=== PATIENT | male | born 1990 | race Caucasian/White ===

== ENCOUNTER 2019-05-09 09:45 | Emergency (ER) | payer SELFPAY ==
--- NOTE | ~2019-05-09 | XR_ITS ---
EXAMINATION: XR chest 2V EXAM DATE: 05/09/2019 10:15 INDICATION: Cardiac ablation age 17. Left-sided chest pain onset this morning. TECHNIQUE: Frontal and lateral projections of the chest obtained and reviewed. There is no prior august dy for comparison. FINDINGS: The lungs are clear. There are no pleural effusions. The cardiomediastinal silhouette is within normal limits. There is no pneumothorax suspected. The bones and soft tissues are unremarkab le. IMPRESSION: No acute cardiopulmonary findings. Reviewed, dictated and finalized at location A. D CONTACT PERSON
--- NOTE | 2019-05-09 09:50 | ECG_ITS ---
Measurements Intervals [place] Rate: 66 P: 49 CT: 155 QRS: 32 QRSD: 110 T: 45 QT: 364 QTc: 382 Interpretive Statements SINUS RHYTHM NORMAL ECG Electronically Signed On 05-10-2019 17:25:54 MENTAL HEALTH PROGRAM SPECIALIST by Daniel Call D.O.
[2019-05-09 09:55] VITALS: BP 122/86; PULSE 78; RESP 16; TEMP 36.5; O2SAT 98
[2019-05-09 09:57] VITALS: O2SAT 99
[2019-05-09 09:58] VITALS: PULSE 80
--- NOTE | 2019-05-09 10:02 | ED.CHESTPAIN ---
HPI - Chest Pain General Chief Complaint: Chest Pain Stated Complaint: CHEST PAIN Source: patient Mode of arrival: ambulatory Limitations: no limitations History of Present Illness HPI narrative: Patient is a 28-year-old male who presents to emergency department for evaluation of left-sided chest pain over the left breast worse with palpation activity and movement denies any injury or trauma patient denies similar occurrence in the past patient notes that the pain has been constant for the last 5 days worse with activity is noted took ibuprofen with no improvement denies any other illness or complaints notes that he has had some dyspnea this morning which resolved Related Data Allergies Allergy/AdvReac Type Severity Reaction Status Date / Time No Known Allergies Allergy Unknown Unverified 09/02/18 18:17 Review of Systems Review of Systems: All systems reviewed & are unremarkable except as noted in HPI and below PMFSH Surgical History Surgical History (Updated 05/09/19 @ 10:08 by Stephon Zacarias PA-C) H/O cardiac radiofrequency ablation Social History Social History (Updated 05/09/19 @ 10:08 by Stephon Zacarias PA-C) Smoking status: Never smoker Gender identity (if verbalized by the patient): Male Exam Narrative: Exam Narrative: GENERAL: Well-appearing, well-nourished, and in no acute distress. HEAD: Normocephalic, atraumatic. EYES: PERRLA and EOMI. ENT: Nares clear, no rhinorrhea or epistaxis. Mucous membranes moist. Oropharynx without tonsillar hypertrophy exudate or other lesions. NECK: Supple. No adenopathy or masses. CHEST: Clear to auscultation. No respiratory distress. No wheezes rales or rhonchi. Tenderness over the left breast reproducible pain noted HEART: Regular rate and rhythm. No murmur heard. Normal peripheral pulses. ABDOMEN: Soft, nontender, nondistended EXTREMITIES: Normal range of motion. No edema. SKIN: Warm, dry, no rash. NEURO: No focal deficits. Alert and oriented x3. Cranial nerves II through XII grossly intact PSYCH: Normal mood and affect. Course Course Emergency Course: Patient in the room in no distress aware of case findings treatment plan and diagnosis agreeing to follow-up as directed or to return if symptoms worsen or concerns Vital Signs Vital signs: Vital Signs Temperature 97.7 F 05/09/19 09:55 Pulse Rate 78 05/09/19 09:55 Respiratory Rate 16 05/09/19 09:55 Blood Pressure 122/86 05/09/19 09:55 Pulse Oximetry 98 05/09/19 09:55 Temperature 97.7 F 05/09/19 09:55 Pulse Rate 80 05/09/19 09:58 Respiratory Rate 16 05/09/19 09:55 Blood Pressure 122/86 05/09/19 09:55 Pulse Oximetry 99 05/09/19 09:57 MDM - Chest Pain MDM Narrative Medical decision making narrative: Paitents EKGs and labs are without significant high risk changes. Cardiac risk facotrs were reviewd. Patient is felt likely to be low risk for ACS and resonable for further risk stratification testing as an outpatient. Pain was not suddne or maximal in onset without tearing or ripping. quality. No other signs or symptoms to suggest aortic dissection. A low-risk Wells criteria is noted. PE is felt to be unlikely. No pneumonia or URI symptoms were seen on evaluation today. Patient is felt to b resonable for continued evaluation as an outpatient. Lab Data Result diagrams: 05/09/19 10:28 05/09/19 10:28 Labs: Lab Results 05/09/19 05/09/19 05/09/19 Range/Units 10:28 10:28 10:28 WBC 5.9 (4.5-10.0) K/mm3 RBC 4.84 (4.6-6.20) M/mm3 Hgb 15.5 (14.0-18.0) g/dL Hct 43.5 (42.0-52.0) % MCV 89.9 (80-100) fl MCH 32.0 (26-34) pg MCHC 35.6 (32-36) g/dl RDW 11.9 (11.5-14.5) % Plt Count 290 (150-375) k/mm3 MPV 9.8 (7.4-10.4) fl Immature Gran % (Auto) 0.5 (0-0.5) % Neut % (Auto) 59.0 (45.5-73.1) % Lymph % (Auto) 28.8 (18.3-44.2) % Williamson % (Auto) 8.6 H (2.6-8.5) % Eos % (Auto) 2.4 (0-4
[2019-05-09 10:42] LABS: Basophils Percent Auto 0.7 % (0.2-1.2); Eosinophils Absolute Auto 0.1 K/mm3 (0-0.3); Eosinophils Percent Auto 2.4 % (0-4.4); Hematocrit 43.5 % (42.0-52.0); Hemoglobin 15.5 g/dL (14.0-18.0); Immature Granulocyte Absolute 0.03 K/mm3 (0.00-0.031); Immature Granulocyte Percent A 0.5 % (0-0.5); Lymphocytes Absolute Auto 1.71 K/mm3 (0.9-3.2); Lymphocytes Percent Auto 28.8 % (18.3-44.2); Mean Corpuscular HGB Conc 35.6 g/dl (32-36); Mean Corpuscular Volume 89.9 fl (80-100); Mean Platelet Volume 9.8 fl (7.4-10.4); Monocytes Absolute Auto 0.5 K/mm3 (0.1-0.6); Monocytes Percent Auto 8.6 % (2.6-8.5); Neutrophils Absolute Auto 3.5 K/mm3 (1.3-6.7); Platelet Count Result 290 k/mm3 (150-375); Red Blood Count 4.84 M/mm3 (4.6-6.20); Red Cell Distribution Width 11.9 % (11.5-14.5); White Blood Count 5.9 K/mm3 (4.5-10.0)
[2019-05-09 10:55] LABS: Blood Urea Nitrogen 12 mg/dL (9-20); Calcium 9.9 mg/dL (8.4-10.2); Carbon Dioxide 28 mmol/L (22-30); Chloride 97 mmol/L (98-107); Estimated Glomerular Filt Rate > 60; Glucose 101 mg/dL (75-110); Partial Thromboplastin Time 25.6 SECONDS (22.3-36.8); Potassium 4.2 mmol/L (3.4-5.0); Sodium 139 mmol/L (137-145)
[2019-05-09 10:59] LABS: D Dimer 0.27 ug/mL (<0.48)
[2019-05-09 11:06] LABS: Troponin I < 0.012 ng/mL (0.000-0.034)
[2019-05-09 12:08] VITALS: BP 122/86; PULSE 77; RESP 14; O2SAT 100
== END 2019-05-09 12:09 | disposition home or self-care (01) ==
PROVIDERS: Emergency Medicine Emergency Medical Services; Emergency Provider Emergency Medicine
DX: R07.9 Chest pain, unspecified (principal)
CPT/HCPCS: 36415; 71046; 80048; 84484; 85025; 85380; 85610; 85730; 93005; 99284

== ENCOUNTER 2019-05-18 04:27 | Emergency (ER) | payer SELFPAY ==
--- NOTE | ~2019-05-18 | CT_ITS ---
EXAMINATION: CTA chest PE protocol DATE: 05/18/2019 06:09 INDICATION: Chest pain. TECHNIQUE: Computed tomography angiography (CTA) of the chest was performed with 100 mL Omnipaque-350 intravenous contrast timed to evaluate the pulmonary arteries. Coronal maximum intensity projection 3D-reconstructions were created by the technologist. Automated exposure control and iterative reconst ruction technique were employed. The dose-length product was 619.12 mGy-cm. COMPARISON: None. FINDINGS: There is no pneumonia or pleural effusion. The heart size is normal. No pericardial effusio n. There is no pulmonary embolus. 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 The bones are unremarkable. IMPRESSION: 1. No pulmonary embolus. Reviewed, dictated and finalized at location A. ALYSIS TECHNICIAN IMPRESSION: 1. No pulmonary embolus.
--- NOTE | ~2019-05-18 | XR_ITS ---
EXAMINATION: XR chest 2V DATE: 05/18/2019 04:57 INDICATION: Chest pain. TECHNIQUE: Frontal and lateral views of the chest were obtained. COMPARISON: Chest 2 views 05/09/2019, chest CT 05/18/2019 FINDINGS: The chest demonstrates clear lungs without pneumonia, pleural effusion, or pneumothorax. Th e heart size is normal. IMPRESSION: 1. No acute cardiopulmonary disease. Reviewed, dictated and finalized at location A. PIPELINE OPERATOR
[2019-05-18 04:32] VITALS: BP 137/85; PULSE 73; RESP 20; TEMP 36.3; O2SAT 100
--- NOTE | 2019-05-18 04:37 | ECG_ITS ---
Measurements Intervals [place] Rate: 74 P: 55 MN: 156 QRS: 45 QRSD: 103 T: 55 QT: 345 QTc: 383 Interpretive Statements SINUS RHYTHM NORMAL ECG Electronically Signed On 05-18-2019 9:16:54 POLITICAL DIRECTOR by Daniel Call D.O.
--- NOTE | 2019-05-18 04:39 | ED.CHESTPAIN ---
HPI - Chest Pain General Chief Complaint: Chest Pain <Phillip Garcia DO - Last Filed: 05/18/19 04:42> Stated Complaint: chest pain <Phillip Garcia DO - Last Filed: 05/18/19 04:42> Time Seen by Provider: 05/18/19 04:35 <Phillip Garcia DO - Last Filed: 05/18/19 04:42> Source: RN notes reviewed <Phillip Garcia DO - Last Filed: 05/18/19 04:42> History of Present Illness HPI narrative: Patient presents emergency department from home for left-sided chest pain. Patient states that symptoms have been ongoing past 2 weeks. The pain is located in the left side of the chest with radiation to the left neck and the left shoulder. Patient states the pain is described as sharp and stabbing in nature and is constant but worsened this evening. States he was evaluated previously with negative work-up. He denies any fevers or chills abdominal pain nausea vomiting or any other symptoms. Patient does state associated shortness of breath <Phillip Garcia DO - Last Filed: 05/18/19 04:42> Related Data Allergies/Adverse Reactions: Allergies Allergy/AdvReac Type Severity Reaction Status Date / Time No Known Allergies Allergy Unknown Verified 05/18/19 04:40 <Phillip Garcia DO - Last Filed: 05/18/19 04:42> Review of Systems Review of Systems: Narrative: Gen.: Denies fevers or chills ENT: Denies congestion Respiratory: Reports shortness of breath CV: Reports chest pain GI: Denies abdominal pain nausea, emesis or diarrhea denies burning, urgency, frequency or hematuria Musculoskeletal: Denies back pain or muscle pain Neuro: Denies numbness, tingling, weakness or focal weakness Skin: Denies rash Except as documented, all other systems reviewed and negative <Phillip Garcia DO - Last Filed: 05/18/19 04:42> [facility] Surgical History Surgical History: Surgical History H/O cardiac radiofrequency ablation <Phillip Garcia DO - Last Filed: 05/18/19 04:42> Social History Social History: Social History Smoking status: Never smoker Gender identity (if verbalized by the patient): Male <Phillip Garcia DO - Last Filed: 05/18/19 04:42> Exam Narrative: Exam Narrative: APPEARANCE: No acute distress, nontoxic, resting in bed EYES: EOMI HEENT: Normocephalic, atraumatic, OMM RESPIRATORY: No respiratory distress Clear to auscultation bilaterally with no rhonchi wheezing or rales. CARDIOVASCULAR: Regular rate and rhythm without murmurs rubs or gallops. Chest: Tender to palpation over left anterior chest, no swelling or ecchymosis ABDOMINAL: Soft, nontender, nondistended, no rebound or guarding MUSCULOSKELETAl: Moves all extremities. No clubbing, cyanosis or edema. NEURO: Awake and alert. Following commands, speech normal, no focal deficits SKIN:: Warm, dry. No rashes lesions or abrasions PSYCHIATRIC: Normal affect/mood, <Phillip Garcia DO - Last Filed: 05/18/19 04:42> Course Vital Signs Vital signs: Vital Signs Temperature 36.3 C L 05/18/19 04:32 Pulse Rate 73 05/18/19 04:32 Respiratory Rate 20 05/18/19 04:32 Blood Pressure 137/85 05/18/19 04:32 Pulse Oximetry 100 05/18/19 04:32 Temperature 36.3 C L 05/18/19 04:32 Pulse Rate 73 05/18/19 08:20 Respiratory Rate 18 05/18/19 08:20 Blood Pressure 144/78 H 05/18/19 08:20 Pulse Oximetry 100 05/18/19 08:20 <Phillip Garcia DO - Last Filed: 05/18/19 04:42> Vital Signs Temperature 36.3 C L 05/18/19 04:32 Pulse Rate 73 05/18/19 04:32 Respiratory Rate 20 05/18/19 04:32 Blood Pressure 137/85 05/18/19 04:32 Pulse Oximetry 100 05/18/19 04:32 Temperature 36.3 C L 05/18/19 04:32 Pulse Rate 73 05/18/19 08:20 Respiratory Rate 18 05/18/19 08:20 Blood Pressure 144/78 H 05/18/19 08:20 Pulse Oximetry 100 05/18/19 08:20 <[place]
[2019-05-18 04:48] LABS: Basophils Absolute Auto 0.1 K/mm3 (0.0-0.1); Basophils Percent Auto 0.8 % (0.2-1.2); Eosinophils Absolute Auto 0.2 K/mm3 (0-0.3); Eosinophils Percent Auto 3.7 % (0-4.4); Hematocrit 43.9 % (42.0-52.0); Hemoglobin 15.6 g/dL (14.0-18.0); Immature Granulocyte Absolute 0.03 K/mm3 (0.00-0.031); Immature Granulocyte Percent A 0.5 % (0-0.5); Lymphocytes Absolute Auto 2.64 K/mm3 (0.9-3.2); Lymphocytes Percent Auto 42.9 % (18.3-44.2); Mean Corpuscular HGB Conc 35.5 g/dl (32-36); Mean Corpuscular Hemoglobin 32.2 pg (26-34); Mean Corpuscular Volume 90.5 fl (80-100); Mean Platelet Volume 10.3 fl (7.4-10.4); Monocytes Absolute Auto 0.6 K/mm3 (0.1-0.6); Monocytes Percent Auto 9.3 % (2.6-8.5); Neutrophils Absolute Auto 2.6 K/mm3 (1.3-6.7); Neutrophils Percent Auto 42.8 % (45.5-73.1); Platelet Count Result 295 k/mm3 (150-375); Red Blood Count 4.85 M/mm3 (4.6-6.20); Red Cell Distribution Width 11.9 % (11.5-14.5); White Blood Count 6.2 K/mm3 (4.5-10.0)
[2019-05-18 05:10] LABS: Troponin I < 0.012 ng/mL (0.000-0.034)
[2019-05-18 05:20] LABS: Alanine Aminotransferase 89 U/L (4-50); Albumin Level 4.8 g/dL (3.5-5.1); Alkaline Phosphatase 49 U/L (38-126); Aspartate Amino Transferase 38 U/L (17-59); Bilirubin,Total 0.5 mg/dL (0.2-1.3); Lipase 47 U/L (23-300)
[2019-05-18 05:21] LABS: Prothrombin Time 12.5 Seconds (11.1-14.7)
[2019-05-18 05:28] VITALS: BP 124/82; PULSE 79; RESP 15; O2SAT 100
[2019-05-18] MEDS: MORPHINE SULFATE 2 MG/ML INJ IV PUSH (05:52)
[2019-05-18 05:55] LABS: D Dimer < 0.22 ug/mL (<0.48)
--- NOTE | 2019-05-18 05:56 | PC.NURSE ---
Patient takent to CT.
[2019-05-18 05:57] LABS: Blood Urea Nitrogen 12 mg/dL (9-20); Calcium 9.5 mg/dL (8.4-10.2); Carbon Dioxide 28 mmol/L (22-30); Chloride 103 mmol/L (98-107); Estimated Glomerular Filt Rate > 60; Glucose 103 mg/dL (75-110); Potassium 4.5 mmol/L (3.4-5.0); Sodium 139 mmol/L (137-145)
[2019-05-18 06:07] LABS: Blood Urea Nitrogen 13 mg/dL (8-26); Estimated Glomerular Filt Rate > 60
--- NOTE | 2019-05-18 06:28 | PC.NURSE ---
Patient states he is having a really hard time breathing, especially when I lay down. Patient states the pain has eased up a little but the sob has increased. Patient sitting in the stretcher. Patient at 100% on RA with NAD. EDP Dr. Garcia notified.
[2019-05-18 06:30] VITALS: BP 145/77; PULSE 76; RESP 13; O2SAT 100
[2019-05-18] MEDS: LACTATED RINGERS 1,000 ML 999 ML IV CONT (06:51)
[2019-05-18 08:11] LABS: Troponin I < 0.012 ng/mL (0.000-0.034)
[2019-05-18 08:20] VITALS: BP 144/78; PULSE 73; RESP 18; O2SAT 100
[2019-05-18 08:40] VITALS: BP 144/78; PULSE 67; RESP 16; O2SAT 100
--- NOTE | 2019-05-22 03:58 | PC.NURSE ---
Late Entry LR finished infusing on 05/18/2019 at 0745.
== END 2019-05-18 08:42 | disposition home or self-care (01) ==
PROVIDERS: Emergency Medicine; Emergency Provider Emergency Medicine
DX: R07.89 Other chest pain (principal)
CPT/HCPCS: 36415; 71046; 71275; 80048; 80076; 83690; 84484; 85025; 85380; 85610; 85730; 93005; 96361; 96374; 99284; A9270; J2270; J7120; Q9967

== ENCOUNTER 2019-06-27 12:23 | Outpatient (CLI) | payer OTHER, SELFPAY ==
--- NOTE | ~2019-06-27 | US_ITS ---
EXAMINATION: US soft tissue chest DATE: 06/27/2019 12:52 INDICATION: Left chest lump. TECHNIQUE: Multiple grayscale and Doppler ultrasound images of the abdomen were obtained. COMPARISON: Chest CT 05/18/2019 FINDINGS: There is no abnormal mass in left chest in the patient's area of concern. IMPRESSION: 1. No abnormal mass in left chest in the patient's area of concern. Reviewed, dictated and finalized at location A.
== END 2019-06-27 12:24 | disposition home or self-care (01) ==
LOC: ANHIMG 12:28
PROVIDERS: PCP Family Medicine; Visit Provider Family Medicine
DX: M25.519 Pain in unspecified shoulder (principal)
CPT/HCPCS: 76604

== ENCOUNTER 2022-12-20 15:24 | Emergency (ER) | payer OTHER, SELFPAY ==
[2022-12-20 15:34] VITALS: BP 135/94; PULSE 90; RESP 16; TEMP 35.5; O2SAT 97
--- NOTE | 2022-12-20 15:34 | ED.UPPEXIN ---
HPI - Extremity Injury (Upper) General Stated Complaint: Right Thumb Injury Source: patient and RN notes reviewed History of Present Illness HPI narrative: 32 yo M presents to urgent care with request for a work note. Pt states he fell on Sunday night, landing on his right thumb. Pt states he called off yesterday b/c of the pain in his thumb but states his place of work is requiring a note to return. Pt denies any other injury, including head injury or LOC. Pt has much improved pain today and full ROM. Related Data Home Medications Medication Instructions Recorded Confirmed No Home Medications 12/20/22 12/20/22 Allergies Allergy/AdvReac Type Severity Reaction Status Date / Time No Known Allergies Allergy Unknown Verified 05/18/19 04:40 Review of Systems Review of Systems: CONSTITUTIONAL: Denies fever, chills, or sweats. EYES: Denies visual changes, redness, or discharge. ENT: Denies otalgia and sore throat CARDIOVASCULAR: Denies chest pain, palpitations, or edema. RESPIRATORY: Denies cough or dyspnea. GASTROINTESTINAL: Denies abdominal pain, nausea, vomiting, or diarrhea. GENITOURINARY: Denies dysuria or hematuria. SKIN: Denies rash or itching. MUSCULOSKELETAL: right thumb pain NEUROLOGIC: Denies headache, numbness, or weakness. Pertinent positives per HPI. PMFSH Surgical History Surgical History H/O cardiac radiofrequency ablation Social History Social History Smoking status: Never smoker Gender identity (if verbalized by the patient): Male Comments At the time of my signature, I reviewed and agree with the nursing past medical, surgical, social, and family history. There is no relevant family history pertinent to the patient complaint. Exam Narrative: GENERAL: This is a well-nourished, well-developed patient, in no apparent distress. HEAD: normocephalic, atraumatic. EYES: Sclera clear/white. Vision is grossly intact. EARS: External ears normal, auditory canals clear and without drainage, TMs normal without perforation. Hearing grossly intact. NOSE: External nose normal with no obvious nasal discharge, nares without redness, no rhinorrhea. THROAT: Mucous membranes moist, posterior pharynx clear. NECK: Neck supple, non-tender without lymphadenopathy, masses or thyromegaly. CARDIOVASCULAR: Regular rate and rhythm without murmurs, gallops, or rubs. RESPIRATORY: Clear to auscultation. Breath sounds equal bilaterally. No wheezes, rales, or rhonchi. GASTROINTESTINAL: Abdomen soft, non-tender, nondistended. Bowel sounds are active. No hepato-splenomegaly, or palpable masses. No guarding. SKIN: warm, intact with no suspicious lesions or rash, good texture and turgor. NEURO: awake, alert, and oriented to person, place and time. There were no obvious focal neurologic abnormalities. EXTREMITIES: No clubbing, cyanosis, or edema. No joint tenderness, effusion, or edema noted. BACK: Nontender without deformity or crepitus. No flank tenderness. Course Course Level of Care: Express Care Visit Vital Signs Vital signs: Reviewed MDM - Extremity Injury (Upper) MDM Narrative Medical decision making narrative: Use the RICE method at home. May take ibuprofen and/or Tylenol if needed. If symptoms persist in 1 week after conservative treatment, follow-up with specialist. Differential Diagnosis Differential diagnosis: Likely other (thumb sprain, Fx, strain) Critical Care Time Critical Care Time Critical Care Time: No Discharge Plan Discharge Clinical Impression: Sprain of right thumb Qualifiers: Encounter type: initial encounter Sprain of finger site: unspecified site Qualified Code(s): S63.601A - Unspecified sprain of right thumb, initial encounter Patient Disposition: Home, Self-Care Condition: Stable Instructions: P.R.I.C.E. Treatment (ED) Additional Instructions: Use the RICE
[2022-12-20 15:37] VITALS: BP 135/94; PULSE 90; RESP 16; TEMP 35.5; O2SAT 97
== END 2022-12-20 15:40 | disposition home or self-care (01) ==
PROVIDERS: Emergency Provider Nurse Practitioner Family
DX: S63.601A Unspecified sprain of right thumb, initial encounter (principal); W19.XXXA Unspecified fall, initial encounter
CPT/HCPCS: 99202; G0463